=== PATIENT | female | born 1985 | race Asian ===

== ENCOUNTER → 2016-10-25 | Outpatient (CLI) | payer BC ==
--- NOTE | 2016-10-25 14:58 | MAMMOGRAPHY REPORT ---
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 Patient also reports 2 small nodular areas in the left breast, and a ma ss in the superior left breast that may be possibly increasing in size. COMPARISON: Comparison is made to exams dated: 04/28/2016 ultrasound, 10/27/2015 ultrasound, 04/21/20 15 ultrasound, 10/17/2014 ultrasound biopsy, 09/29/2014 ultrasound, and 12/26/2012 ultrasound - [facility]. FINDINGS: Targeted ultrasound was performed in the 10:00 right breast located 2 cm from the nipple and 5 cm from the nipple, to reevaluate an area of nodularity along the surgical scar, and also a bi opsy proven tubular adenoma. In the 10:00 right breast, 5 cm from the nipple, there is a hypoechoic lobulated circumscribed parallel mass with internal metallic biopsy marker clip. It measures 15.9 x 6.5 x 14.8 mm. This has not significantly changed comparing to 04/28/2016 at which time it measur ed 15.0 x 6.6 x 14.2 mm. Comparing to 10/27/2015, it measured 15.2 x 5.8 x 13.7 mm. In the 10:00 r ight breast, 2 cm from the nipple there is a vague area of nodularity deep to the surgical scar saran uring approximately 10.7 x 4.3 x 10.1 mm. When comparing to the prior ultrasound from April 2016 , this measured 11.6 x 4.8 x 9.9 mm, and is unchanged. Within the left 2:00 axis, 4 cm from the nip ple in an area of tiny BB to pea-sized nodule pointed out by the patient, no suspicious solid or cys tic mass is identified. In the 12:00 left breast, 4 cm from the nipple, another tiny area of nodula rity demonstrates no suspicious solid or cystic mass. An area of possible increasing mass in the 1: 00 left breast, 7 cm from the nipple, there is an oval parallel circumscribed hypoechoic solid-appea ring mass measuring 16.1 x 4.8 x 15.8 mm. This has not significantly changed comparing back to 06/30 at which time it measured 16.8 mm. IMPRESSION: ACR-BI-RADS CATEGORY 3: PROBABLY BENIGN - FOLLOW-UP RECOMMENDED 1. No significant interval change in size or appearance of a biopsy proven tubular adenoma in the 1 0:00 right breast, 5 cm from the nipple. Another 12 month follow-up exam is recommended to ensure l onger stability, as the patient thinks it may be increasing in size. Alternatively, the patient may prefer surgical excision. 2. No significant interval change in size or appearance of a vague isoechoic possible mass along th e surgical scar in the 10:00 right breast, 2 cm from the nipple. 3. No discrete suspicious solid or cystic mass in the 12:00 and 2:00 axes of the left breast, in ar eas of tiny nodularity pointed out by the patient. 4. No significant interval change in size or appearance of a solid palpable mass in the 2:00 left b reast. Overall, clinical follow-up and continued clinical monitoring is recommended. If any of of the abov e palpable masses appear to be clinically increasing in size, surgical excision could be considered. Otherwise, a 12 month follow-up targeted bilateral breast ultrasound is recommended to ensure long er stability. Buffy Mcdonald M.D. ay/:10/25/2016 09:19:40 Attending Technologist: Darryn DONG(R)(M), [facility] Import Coordinator: Dr. Buffy Mcdonald, [facility] letter sent: Follow Up Recommended 3 BI-RADS Code: ACR-BI-RADS Category 3: Probably Benign
== END | disposition home or self-care (01) ==
LOC: C.MAMM 08:04
PROVIDERS: ATTEND Surgery
DX: Z09 Encounter for follow-up examination after completed treatment for conditions other than malignant neoplasm (principal); D24.1 Benign neoplasm of right breast